=== PATIENT | male | born 1955 | race Caucasian/White ===

== ENCOUNTER 2023-05-03 19:12 | Inpatient (IN) | payer MEDICARE ==
[~2023-05-03] VITALS: Ht 165.1 cm; Wt 93.4 kg
[~2023-05-03 19:12] MED LIST: ALLOPURINOL300 MG PO; ANTIBIOTIC; ASPIRIN325 MG PO; DIURETIC; ECHINACEA HERB380 MG PO; LEVOTHYROXINE50 MCG PO; METFORMIN HCL500 MG PO; TYLENOL PO; VITAMIN D5000 UNIT PO; ZYRTEC10 MG PO
[2023-05-03] MEDS ORDERED: ONDANSETRON HCL INJ 2MG/ML 2ML 2 MG/ML VIAL IV PRN (21:00)
[2023-05-03] MEDS ORDERED: D5.45%NS/KCL 20MEQ 1,000 ML IV SCH (21:00)
[2023-05-03] MEDS ORDERED: Morphine 4mg INJECTION 4 MG/ML INJ IV PRN (21:00)
[2023-05-03 22:05] LABS: BASOPHILS # (AUTO) 0.1 (0.0-0.1); BASOPHILS % 0.7 % (0.0-1.0); EOSINOPHILS # (AUTO) 0.3 (0.0-0.4); EOSINOPHILS % 4.7 % (0.0-6.0); HEMATOCRIT 44.1 % (38.2-49.6); HEMOGLOBIN 14.5 g/dL (14.0-18.0); LYMPHOCYTES # (AUTO) 2.2 (1.0-3.2); LYMPHOCYTES % 32.8 % (18.0-39.1); MEAN CORPUSCULAR HEMOGLOBIN 29.1 pg (28-32); MEAN CORPUSCULAR HGB CONC 32.9 g/dL (31-35); MEAN CORPUSCULAR VOLUME 88.6 fL (81-99); MONOCYTES # (AUTO) 0.7 (0.2-0.8); MONOCYTES % 9.6 % (4.4-11.3); NEUTROPHILS # (AUTO) 3.5 (2.1-6.9); NEUTROPHILS % 51.6 % (38.7-80.0); PLATELET COUNT 206 x10e3/uL (140-360); RED BLOOD COUNT 4.98 x10e6/uL (4.3-5.7); RED CELL DISTRIBUTION WIDTH 14.5 % (11.7-14.4); WHITE BLOOD COUNT 6.77 x10e3/uL (4.8-10.8)
[2023-05-03 22:18] LABS: INR 1.17; PARTIAL THROMBOPLASTIN TIME 38.8 seconds (23.8-35.5); PROTHROMBIN TIME 15.1 seconds (11.9-14.5)
[2023-05-03 22:26] LABS: ALBUMIN 2.8 g/dL (3.5-5.0); ALBUMIN/GLOBULIN RATIO 0.6 (0.8-2.0); ANION GAP 14.2 mmol/L (8-16); BILIRUBIN,TOTAL 0.8 mg/dL (0.2-1.2); CALCIUM 9.4 mg/dL (8.4-10.2); CREATININE, SERUM 0.8 mg/dL (0.72-1.25); POTASSIUM 4.2 mmol/L (3.5-5.1); TOTAL PROTEIN 7.8 g/dL (6.5-8.1)
[2023-05-03] MEDS ORDERED: DEXTROSE 5%/0.9% SOD CHL 1,000 ML IV ONE (23:53)
[2023-05-04] VITALS (9 sets, daily range): BP systolic 101–118; BP diastolic 79–92; PULSE 75–98; RESP 18–21; TEMP 97.4–98.7; O2SAT 96–100
[2023-05-04] MEDS: CEFTRIAXONE 2 GM in SODIUM CHLORIDE 0.9% 100 ML IV SCH (00:03)
[2023-05-04] MEDS: CENTRAL TPN FORMULA 1 BAG IV SCH (00:30)
[2023-05-04] MEDS: DEXTROSE 5%/0.45% SOD CHL 1,000 ML IV SCH (01:23)
[2023-05-04 06:43] LABS: BASOPHILS % 0.7 % (0.0-1.0); EOSINOPHILS # (AUTO) 0.3 (0.0-0.4); EOSINOPHILS % 5.6 % (0.0-6.0); HEMATOCRIT 42.3 % (38.2-49.6); HEMOGLOBIN 13.9 g/dL (14.0-18.0); LYMPHOCYTES # (AUTO) 1.2 (1.0-3.2); LYMPHOCYTES % 22.2 % (18.0-39.1); MEAN CORPUSCULAR HEMOGLOBIN 28.7 pg (28-32); MEAN CORPUSCULAR HGB CONC 32.9 g/dL (31-35); MEAN CORPUSCULAR VOLUME 87.4 fL (81-99); MONOCYTES # (AUTO) 0.5 (0.2-0.8); MONOCYTES % 9.9 % (4.4-11.3); NEUTROPHILS # (AUTO) 3.3 (2.1-6.9); PLATELET COUNT 179 x10e3/uL (140-360); RED BLOOD COUNT 4.84 x10e6/uL (4.3-5.7); RED CELL DISTRIBUTION WIDTH 14.6 % (11.7-14.4); WHITE BLOOD COUNT 5.35 x10e3/uL (4.8-10.8)
[2023-05-04 07:21] LABS: ALBUMIN 2.5 g/dL (3.5-5.0); ALBUMIN/GLOBULIN RATIO 0.5 (0.8-2.0); ANION GAP 11.4 mmol/L (8-16); BILIRUBIN,TOTAL 0.6 mg/dL (0.2-1.2); CALCIUM 9.1 mg/dL (8.4-10.2); CREATININE, SERUM 0.95 mg/dL (0.72-1.25); POTASSIUM 4.4 mmol/L (3.5-5.1); TOTAL PROTEIN 7.2 g/dL (6.5-8.1)
[2023-05-04 11:38] LABS: PHOSPHORUS 4.4 MG/DL (2.3-4.7)
[2023-05-05] VITALS (28 sets, daily range): BP systolic 81–356; BP diastolic 60–351; PULSE 38–117; RESP 0–25; TEMP 97.6–98.7; O2SAT 97–100
[2023-05-05 06:27] LABS: BASOPHILS % 0.5 % (0.0-1.0); EOSINOPHILS # (AUTO) 0.3 (0.0-0.4); EOSINOPHILS % 5.6 % (0.0-6.0); HEMATOCRIT 40.9 % (38.2-49.6); HEMOGLOBIN 13.3 g/dL (14.0-18.0); LYMPHOCYTES % 17.7 % (18.0-39.1); MEAN CORPUSCULAR HEMOGLOBIN 28.5 pg (28-32); MEAN CORPUSCULAR HGB CONC 32.5 g/dL (31-35); MEAN CORPUSCULAR VOLUME 87.8 fL (81-99); MONOCYTES # (AUTO) 0.5 (0.2-0.8); MONOCYTES % 9.2 % (4.4-11.3); NEUTROPHILS # (AUTO) 3.7 (2.1-6.9); NEUTROPHILS % 66.5 % (38.7-80.0); PLATELET COUNT 184 x10e3/uL (140-360); RED BLOOD COUNT 4.66 x10e6/uL (4.3-5.7); RED CELL DISTRIBUTION WIDTH 14.6 % (11.7-14.4); WHITE BLOOD COUNT 5.55 x10e3/uL (4.8-10.8)
[2023-05-05 06:43] LABS: INR 1.21; PARTIAL THROMBOPLASTIN TIME 40.3 seconds (23.8-35.5); PROTHROMBIN TIME 15.6 seconds (11.9-14.5)
[2023-05-05 06:51] LABS: ALBUMIN 2.4 g/dL (3.5-5.0); ALBUMIN/GLOBULIN RATIO 0.6 (0.8-2.0); BILIRUBIN,TOTAL 0.9 mg/dL (0.2-1.2); CALCIUM 8.6 mg/dL (8.4-10.2); CREATININE, SERUM 0.89 mg/dL (0.72-1.25); MAGNESIUM 2.1 MG/DL (1.3-2.1); PHOSPHORUS 3.7 MG/DL (2.3-4.7); TOTAL PROTEIN 6.7 g/dL (6.5-8.1)
[2023-05-05 06:59] LABS: CALCIUM IONIZED 1.2 mmol/L (1.09-1.30)
[2023-05-05] MEDS ORDERED: HEPARIN SOD/SOD CHLORIDE 1,000 ML ONE (10:43)
[2023-05-05] MEDS ORDERED: PHENYLEPHRINE HCL 1% 10 MG/ML VIAL ONE (12:12)
[2023-05-05] MEDS ORDERED: LIDOCAINE HCL 2% LOCAL INJ 5 ML SDV VIAL INJ ONE (12:12)
[2023-05-05] MEDS ORDERED: PROPOFOL IV EMULSION 10 MG/ML 20 ML VIAL ONE (12:12)
[2023-05-05] MEDS ORDERED: ROCURONIUM BROMIDE 10 MG/ML 5ML VIAL IV ONE (12:12)
[2023-05-05] MEDS ORDERED: ACETAMINOPHEN 1000 MG/100 ML IV ONE (12:12)
[2023-05-05] MEDS ORDERED: NOREPINEPHRINE 8 MG/D5W 250 ML ONE (12:12)
[2023-05-05] MEDS ORDERED: DEXAMETHASONE SOD PHOS INJ 4 MG/ML SDV ONE (12:12)
[2023-05-05] MEDS ORDERED: SEVOFLURANE INHAL SOLN 250 ML PEN BTL ONE (12:12)
[2023-05-05] MEDS ORDERED: ONDANSETRON HCL INJ 2MG/ML 2ML 2 MG/ML VIAL ONE (12:12)
[2023-05-05] MEDS ORDERED: FENTANYL CITRATE/PF 100MCG/2 ML INJ ONE ×2 (12:35→12:39)
[2023-05-05] MEDS ORDERED: MIDAZOLAM HCL 2 MG/2 ML VIAL ONE (12:35)
[2023-05-05] MEDS ORDERED: NOREPINEPHRINE 8 MG/D5W 250 ML 250 ML ONE (18:14)
[2023-05-05] MEDS ORDERED: ACETAMINOPHEN 1000 MG/100 ML IV PRN (18:15)
[2023-05-05] MEDS ORDERED: ONDANSETRON HCL INJ 2MG/ML 2ML 2 MG/ML VIAL IV PRN (18:15)
[2023-05-05] MEDS: SODIUM CHLORIDE 0.9% 250ML IRRIG IR SCH (18:15)
[2023-05-05] MEDS: NOREPINEPHRINE 8 MG/D5W 250 ML 250 ML IV SCH (18:25)
[2023-05-05] MEDS: SODIUM CHLORIDE 0.9% 1000ML 1,000 ML IV SCH (18:32)
[2023-05-05] MEDS ORDERED: FENTANYL 2000MCG/NS 250 250 ML IV PRN (19:00)
[2023-05-05] MEDS ORDERED: AMIODARONE HCL 150 MG in DEXTROSE 5% 100ML 100 ML IV SCH (19:00)
[2023-05-05] MEDS ORDERED: AMIODARONE HCL 150 MG/100 ML BAG IV ONE (19:00)
[2023-05-05] MEDS: AMIODARONE 900MG 500 ML IV SCH (19:27)
[2023-05-05] MEDS: PROPOFOL IV EMULSION 10MG/ML 100 ML IV PRN (19:38)
[2023-05-05] MEDS: ROPIVACAINE 246.25 MG, EPINEPHRINE HCL 1:1000 1ML 0.5 MG, CLONIDINE HCL 0.08 MG, KETORO... INJ ONE (19:48)
[2023-05-05] MEDS: SODIUM CHLORIDE 0.9% 250ML 250 ML IV ONE (19:48)
[2023-05-05 19:56] LABS: ABG HCO3 21 mmol/L (22-26); ABG PCO2 43 mmHg (35-45); ABG PH 7.31 (7.35-7.45); ABG PO2 201 mmHg (80-105); ABG TCO2 23
[2023-05-05] MEDS: CENTRAL TPN FORMULA 1 BAG IV SCH (20:00)
[2023-05-05] MEDS: CLINDAMYCIN PHOS 900MG/ 50ML 50 ML IV SCH (23:10)
[2023-05-06] VITALS (54 sets, daily range): BP systolic 87–116; BP diastolic 51–68; PULSE 60–107; RESP 11–28; TEMP 97.8–99.9; O2SAT 94–100
[2023-05-06 06:09] LABS: BASOPHILS % 0.2 % (0.0-1.0); HEMATOCRIT 31.8 % (38.2-49.6); HEMOGLOBIN 10.4 g/dL (14.0-18.0); LYMPHOCYTES % 6.6 % (18.0-39.1); MEAN CORPUSCULAR HEMOGLOBIN 28.7 pg (28-32); MEAN CORPUSCULAR HGB CONC 32.7 g/dL (31-35); MEAN CORPUSCULAR VOLUME 87.6 fL (81-99); MONOCYTES # (AUTO) 1.2 (0.2-0.8); MONOCYTES % 7.9 % (4.4-11.3); NEUTROPHILS # (AUTO) 13.3 (2.1-6.9); NEUTROPHILS % 84.9 % (38.7-80.0); PLATELET COUNT 177 x10e3/uL (140-360); RED BLOOD COUNT 3.63 x10e6/uL (4.3-5.7); RED CELL DISTRIBUTION WIDTH 14.6 % (11.7-14.4); WHITE BLOOD COUNT 15.64 x10e3/uL (4.8-10.8)
[2023-05-06 06:33] LABS: ALBUMIN 1.7 g/dL (3.5-5.0); ALBUMIN/GLOBULIN RATIO 0.5 (0.8-2.0); BILIRUBIN,TOTAL 1.4 mg/dL (0.2-1.2); CALCIUM 7.3 mg/dL (8.4-10.2); CREATININE, SERUM 0.85 mg/dL (0.72-1.25); PHOSPHORUS 3.6 MG/DL (2.3-4.7)
[2023-05-06 07:01] LABS: CALCIUM IONIZED 1.1 mmol/L (1.09-1.30)
[2023-05-06 09:16] LABS: CALCIUM 7.4 mg/dL (8.4-10.2); CREATININE, SERUM 0.87 mg/dL (0.72-1.25)
[2023-05-06 09:29] LABS: ABG HCO3 20 mmol/L (22-26); ABG PCO2 31 mmHg (35-45); ABG PH 7.41 (7.35-7.45); ABG PO2 138 mmHg (80-105); ABG TCO2 21
[2023-05-06] MEDS ORDERED: DEXTROSE 50% SYRINGE 50 ML IV PRN (15:45)
[2023-05-06] MEDS: INSULIN REGULAR, HUMAN 100 UNIT/1 ML SQ SCH (16:21)
[2023-05-06] MEDS: HYDROMORPHONE 1MG/1ML INJ IV PRN (17:53)
[2023-05-06] MEDS: AMIODARONE 900MG 500 ML IV SCH (19:47)
[2023-05-06] MEDS: AMIODARONE 900MG 500 ML IV ONE (19:47)
[2023-05-07] VITALS (52 sets, daily range): BP systolic 90–114; BP diastolic 45–87; PULSE 72–104; RESP 18–28; TEMP 97.4–98.9; O2SAT 95–100
[2023-05-07 06:36] LABS: BASOPHILS % 0.2 % (0.0-1.0); EOSINOPHILS # (AUTO) 0.1 (0.0-0.4); EOSINOPHILS % 0.4 % (0.0-6.0); HEMATOCRIT 26.3 % (38.2-49.6); HEMOGLOBIN 8.8 g/dL (14.0-18.0); LYMPHOCYTES # (AUTO) 1.1 (1.0-3.2); MEAN CORPUSCULAR HEMOGLOBIN 29.2 pg (28-32); MEAN CORPUSCULAR HGB CONC 33.5 g/dL (31-35); MEAN CORPUSCULAR VOLUME 87.4 fL (81-99); MONOCYTES # (AUTO) 1.1 (0.2-0.8); MONOCYTES % 8.5 % (4.4-11.3); NEUTROPHILS # (AUTO) 10.8 (2.1-6.9); NEUTROPHILS % 82.4 % (38.7-80.0); PLATELET COUNT 146 x10e3/uL (140-360); RED BLOOD COUNT 3.01 x10e6/uL (4.3-5.7); RED CELL DISTRIBUTION WIDTH 15.2 % (11.7-14.4); WHITE BLOOD COUNT 13.12 x10e3/uL (4.8-10.8)
[2023-05-07 06:57] LABS: ALBUMIN 1.5 g/dL (3.5-5.0); ALBUMIN/GLOBULIN RATIO 0.5 (0.8-2.0); ANION GAP 7.9 mmol/L (8-16); BILIRUBIN,TOTAL 1.5 mg/dL (0.2-1.2); CALCIUM 7.3 mg/dL (8.4-10.2); CREATININE, SERUM 0.79 mg/dL (0.72-1.25); POTASSIUM 3.9 mmol/L (3.5-5.1); TOTAL PROTEIN 4.7 g/dL (6.5-8.1)
[2023-05-07] MEDS: ACETAMINOPHEN 1000 MG/100 ML IV PRN (14:27)
[2023-05-08] VITALS (28 sets, daily range): BP systolic 88–137; BP diastolic 58–124; PULSE 53–105; RESP 17–43; TEMP 97.8–98.1; O2SAT 90–100
[2023-05-08 06:34] LABS: BASOPHILS # (AUTO) 0.1 (0.0-0.1); BASOPHILS % 0.4 % (0.0-1.0); EOSINOPHILS # (AUTO) 0.4 (0.0-0.4); HEMATOCRIT 26.2 % (38.2-49.6); HEMOGLOBIN 8.4 g/dL (14.0-18.0); LYMPHOCYTES # (AUTO) 1.2 (1.0-3.2); LYMPHOCYTES % 9.5 % (18.0-39.1); MEAN CORPUSCULAR HEMOGLOBIN 29.5 pg (28-32); MEAN CORPUSCULAR HGB CONC 32.1 g/dL (31-35); MEAN CORPUSCULAR VOLUME 91.9 fL (81-99); MONOCYTES % 7.4 % (4.4-11.3); NEUTROPHILS # (AUTO) 10.1 (2.1-6.9); NEUTROPHILS % 78.8 % (38.7-80.0); PLATELET COUNT 145 x10e3/uL (140-360); RED BLOOD COUNT 2.85 x10e6/uL (4.3-5.7); RED CELL DISTRIBUTION WIDTH 15.3 % (11.7-14.4); WHITE BLOOD COUNT 12.76 x10e3/uL (4.8-10.8)
[2023-05-08 07:00] LABS: ANION GAP 8.4 mmol/L (8-16); CALCIUM 7.7 mg/dL (8.4-10.2); CREATININE, SERUM 0.71 mg/dL (0.72-1.25); PHOSPHORUS 2.3 MG/DL (2.3-4.7)
[2023-05-08 07:01] LABS: POTASSIUM 3.4 mmol/L (3.5-5.1)
[2023-05-08 07:10] LABS: FERRITIN 165.87 ng/mL (21.81-274.66)
[2023-05-08] MEDS: POTASSIUM CHLORIDE 20MEQ/100ML 100 ML IV SCH (11:56)
[2023-05-08] MEDS: CENTRAL TPN FORMULA 1 BAG IV SCH (19:27)
[2023-05-08] MEDS: BISACODYL 10 MG SUPP PR SCH (20:19)
[2023-05-09] VITALS (20 sets, daily range): BP systolic 55–120; BP diastolic 36–92; PULSE 77–103; RESP 19–27; TEMP 98.1–98.8; O2SAT 94–100
[2023-05-09 06:37] LABS: BASOPHILS % 0.3 % (0.0-1.0); EOSINOPHILS # (AUTO) 0.4 (0.0-0.4); EOSINOPHILS % 3.7 % (0.0-6.0); HEMATOCRIT 25.3 % (38.2-49.6); LYMPHOCYTES # (AUTO) 1.2 (1.0-3.2); LYMPHOCYTES % 10.8 % (18.0-39.1); MEAN CORPUSCULAR HEMOGLOBIN 28.9 pg (28-32); MEAN CORPUSCULAR HGB CONC 31.6 g/dL (31-35); MEAN CORPUSCULAR VOLUME 91.3 fL (81-99); MONOCYTES # (AUTO) 0.9 (0.2-0.8); MONOCYTES % 7.9 % (4.4-11.3); NEUTROPHILS # (AUTO) 8.6 (2.1-6.9); NEUTROPHILS % 76.3 % (38.7-80.0); PLATELET COUNT 168 x10e3/uL (140-360); RED BLOOD COUNT 2.77 x10e6/uL (4.3-5.7); RED CELL DISTRIBUTION WIDTH 15.3 % (11.7-14.4)
[2023-05-09 06:54] LABS: ANION GAP 9.2 mmol/L (8-16); CALCIUM 7.6 mg/dL (8.4-10.2); CREATININE, SERUM 0.68 mg/dL (0.72-1.25)
[2023-05-09 06:56] LABS: POTASSIUM 3.2 mmol/L (3.5-5.1)
[2023-05-09] MEDS: AMIODARONE HCL 200 MG TAB PO ONE (12:03)
[2023-05-09] MEDS: POTASSIUM CHLORIDE 20MEQ/100ML 100 ML IV SCH (12:04)
[2023-05-10] VITALS (13 sets, daily range): BP systolic 80–126; BP diastolic 51–81; PULSE 66–105; RESP 15–28; TEMP 97.6–98.8; O2SAT 84–100
[2023-05-10 06:44] LABS: BASOPHILS # (AUTO) 0.1 (0.0-0.1); BASOPHILS % 0.4 % (0.0-1.0); EOSINOPHILS # (AUTO) 0.5 (0.0-0.4); HEMATOCRIT 28.7 % (38.2-49.6); LYMPHOCYTES # (AUTO) 1.5 (1.0-3.2); LYMPHOCYTES % 12.5 % (18.0-39.1); MEAN CORPUSCULAR HEMOGLOBIN 28.7 pg (28-32); MEAN CORPUSCULAR HGB CONC 31.4 g/dL (31-35); MEAN CORPUSCULAR VOLUME 91.4 fL (81-99); MONOCYTES # (AUTO) 0.9 (0.2-0.8); NEUTROPHILS # (AUTO) 8.6 (2.1-6.9); NEUTROPHILS % 73.8 % (38.7-80.0); PLATELET COUNT 205 x10e3/uL (140-360); RED BLOOD COUNT 3.14 x10e6/uL (4.3-5.7); RED CELL DISTRIBUTION WIDTH 15.6 % (11.7-14.4); WHITE BLOOD COUNT 11.61 x10e3/uL (4.8-10.8)
[2023-05-10 06:47] LABS: CALCIUM IONIZED 1.1 mmol/L (1.09-1.30)
[2023-05-10 06:48] LABS: ALBUMIN 1.7 g/dL (3.5-5.0); ALBUMIN/GLOBULIN RATIO 0.4 (0.8-2.0); ANION GAP 9.4 mmol/L (8-16); BILIRUBIN,DIRECT 0.5 mg/dL (0.0-0.5); CALCIUM 8.3 mg/dL (8.4-10.2); CREATININE, SERUM 0.67 mg/dL (0.72-1.25); PHOSPHORUS 2.9 MG/DL (2.3-4.7); TOTAL PROTEIN 5.8 g/dL (6.5-8.1)
[2023-05-10 06:50] LABS: POTASSIUM 3.4 mmol/L (3.5-5.1)
[2023-05-10] MEDS: AMIODARONE HCL 200 MG TAB PO SCH (09:48)
[2023-05-10] MEDS: BISACODYL 10 MG SUPP PR SCH (21:54)
[2023-05-11] VITALS (11 sets, daily range): BP systolic 112–135; BP diastolic 63–84; PULSE 82–104; RESP 19–28; TEMP 97.8–98.4; O2SAT 95–98
[2023-05-11 07:06] LABS: BASOPHILS % 0.1 % (0.0-1.0); EOSINOPHILS # (AUTO) 0.4 (0.0-0.4); EOSINOPHILS % 4.1 % (0.0-6.0); HEMATOCRIT 25.9 % (38.2-49.6); HEMOGLOBIN 8.3 g/dL (14.0-18.0); LYMPHOCYTES # (AUTO) 1.2 (1.0-3.2); LYMPHOCYTES % 11.2 % (18.0-39.1); MEAN CORPUSCULAR HEMOGLOBIN 28.5 pg (28-32); MONOCYTES # (AUTO) 0.9 (0.2-0.8); MONOCYTES % 8.5 % (4.4-11.3); NEUTROPHILS # (AUTO) 7.6 (2.1-6.9); NEUTROPHILS % 74.6 % (38.7-80.0); PLATELET COUNT 218 x10e3/uL (140-360); RED BLOOD COUNT 2.91 x10e6/uL (4.3-5.7); RED CELL DISTRIBUTION WIDTH 15.8 % (11.7-14.4); WHITE BLOOD COUNT 10.24 x10e3/uL (4.8-10.8)
[2023-05-11 07:31] LABS: ALBUMIN 1.6 g/dL (3.5-5.0); ALBUMIN/GLOBULIN RATIO 0.4 (0.8-2.0); ANION GAP 9.4 mmol/L (8-16); BILIRUBIN,TOTAL 0.9 mg/dL (0.2-1.2); CREATININE, SERUM 0.65 mg/dL (0.72-1.25); POTASSIUM 3.4 mmol/L (3.5-5.1); TOTAL PROTEIN 5.6 g/dL (6.5-8.1)
[2023-05-11] MEDS: CEFTRIAXONE 2 GM in SODIUM CHLORIDE 0.9% 100 ML IV SCH (18:55)
[2023-05-11] MEDS: FUROSEMIDE 40 MG TAB PO SCH (18:55)
[2023-05-11] MEDS: BISACODYL 10 MG SUPP PR SCH (20:19)
[2023-05-12] VITALS (10 sets, daily range): BP systolic 107–119; BP diastolic 68–82; PULSE 77–123; RESP 20–26; TEMP 97.3–98.8; O2SAT 88–98
[2023-05-12] MEDS: APIXABAN 5 MG TABLET PO SCH (08:13)
[2023-05-12] MEDS ORDERED: HYDROCODONE/APAP 7.5MG-325MG 1 EA TAB PO PRN (19:45)
[2023-05-12] MEDS ORDERED: CENTRAL TPN FORMULA 1 BAG IV SCH (20:00)
[2023-05-13] VITALS (8 sets, daily range): BP systolic 106–127; BP diastolic 68–79; PULSE 89–97; RESP 20–23; TEMP 98–99.5; O2SAT 95–97
[2023-05-13 06:43] LABS: BASOPHILS % 0.4 % (0.0-1.0); EOSINOPHILS # (AUTO) 0.4 (0.0-0.4); EOSINOPHILS % 5.5 % (0.0-6.0); HEMATOCRIT 28.4 % (38.2-49.6); HEMOGLOBIN 8.8 g/dL (14.0-18.0); LYMPHOCYTES # (AUTO) 1.1 (1.0-3.2); LYMPHOCYTES % 14.5 % (18.0-39.1); MEAN CORPUSCULAR HEMOGLOBIN 28.6 pg (28-32); MEAN CORPUSCULAR VOLUME 92.2 fL (81-99); MONOCYTES # (AUTO) 0.5 (0.2-0.8); MONOCYTES % 6.8 % (4.4-11.3); NEUTROPHILS # (AUTO) 5.6 (2.1-6.9); NEUTROPHILS % 71.9 % (38.7-80.0); PLATELET COUNT 230 x10e3/uL (140-360); RED BLOOD COUNT 3.08 x10e6/uL (4.3-5.7); RED CELL DISTRIBUTION WIDTH 15.9 % (11.7-14.4); WHITE BLOOD COUNT 7.84 x10e3/uL (4.8-10.8)
[2023-05-13 07:03] LABS: ANION GAP 12.7 mmol/L (8-16); CALCIUM 8.2 mg/dL (8.4-10.2); CREATININE, SERUM 0.73 mg/dL (0.72-1.25); POTASSIUM 3.7 mmol/L (3.5-5.1)
[2023-05-13 09:39] LABS: EOSINOPHILS % (MANUAL) 3 % (0-7); LYMPHOCYTES % (MANUAL) 8 % (19-48); MONOCYTES % (MANUAL) 4 % (3.4-9.0); NEUTROPHILS % (MANUAL) 85 % (40-74); PLATELET ESTIMATE ADEQUATE; PLATELET MORPHOLOGY COMMENT NORMAL; RBC MORPHOLOGY COMMENT NORMAL
[2023-05-13] MEDS: HYDROCODONE/APAP 7.5MG-325MG 1 EA TAB PO PRN (21:54)
[2023-05-14 00:18] VITALS: BP 106/73; PULSE 80; RESP 24; TEMP 99.7; O2SAT 96
[2023-05-14 03:59] VITALS: BP 112/82; PULSE 96; RESP 17; TEMP 97.2; O2SAT 96
[2023-05-14 05:58] LABS: EOSINOPHILS # (AUTO) 0.4 (0.0-0.4); EOSINOPHILS % 4.8 % (0.0-6.0); HEMATOCRIT 27.3 % (38.2-49.6); HEMOGLOBIN 8.7 g/dL (14.0-18.0); LYMPHOCYTES # (AUTO) 1.3 (1.0-3.2); MEAN CORPUSCULAR HEMOGLOBIN 28.8 pg (28-32); MEAN CORPUSCULAR HGB CONC 31.9 g/dL (31-35); MEAN CORPUSCULAR VOLUME 90.4 fL (81-99); MONOCYTES # (AUTO) 0.5 (0.2-0.8); MONOCYTES % 7.3 % (4.4-11.3); NEUTROPHILS # (AUTO) 5.1 (2.1-6.9); NEUTROPHILS % 69.8 % (38.7-80.0); PLATELET COUNT 257 x10e3/uL (140-360); RED BLOOD COUNT 3.02 x10e6/uL (4.3-5.7); RED CELL DISTRIBUTION WIDTH 15.9 % (11.7-14.4); WHITE BLOOD COUNT 7.36 x10e3/uL (4.8-10.8)
[2023-05-14 06:18] LABS: ANION GAP 12.8 mmol/L (8-16); CALCIUM 8.3 mg/dL (8.4-10.2); CREATININE, SERUM 0.75 mg/dL (0.72-1.25); POTASSIUM 3.8 mmol/L (3.5-5.1)
[2023-05-14 07:25] VITALS: BP 107/74; PULSE 87; RESP 16; TEMP 97.9; O2SAT 94
[2023-05-14] MEDS ORDERED: TYLENOL325 MG PO (09:04)
[2023-05-14] MEDS ORDERED: FUROSEMIDE40 MG PO (09:04)
[2023-05-14] MEDS ORDERED: ELIQUIS5 MG PO (09:04)
[2023-05-14] MEDS ORDERED: PANTOPRAZOLE SO40 MG PO (09:04)
[2023-05-14] MEDS ORDERED: AMIODARONE HCL200 MG PO (09:04)
[2023-05-14] MEDS ORDERED: CEPHALEXIN500 MG PO (09:04)
[2023-05-14 09:30] VITALS: BP 107/74; PULSE 87; RESP 16; TEMP 97.9; O2SAT 94
[2023-05-14 12:11] VITALS: BP 117/83; PULSE 86; RESP 25; O2SAT 99
[2023-05-14 17:08] VITALS: BP 114/78; PULSE 86; RESP 20; TEMP 97.7; O2SAT 98
== END 2023-05-14 19:30 | DRG 329 ==
LOC: ER 20:37 → ERHOLD 21:02 → MED/SURG3 23:59 → ICU 05-05 17:46
PROVIDERS: ADMIT Internal Medicine; ATTEND Internal Medicine
PROC: 02HV33Z Insertion of Infusion Device into Superior Vena Cava, Percutaneous Approach (ICD-10-PCS; 2023-05-05)
PROC: B548ZZA Ultrasonography of Superior Vena Cava, Guidance (ICD-10-PCS; 2023-05-05)
PROC: 3E033XZ Introduction of Vasopressor into Peripheral Vein, Percutaneous Approach (ICD-10-PCS; 2023-05-05)
PROC: 0WQF0ZZ Repair Abdominal Wall, Open Approach (ICD-10-PCS; 2023-05-05)
PROC: 4A033R1 Measurement of Arterial Saturation, Peripheral, Percutaneous Approach (ICD-10-PCS; 2023-05-05)
PROC: 0DB80ZZ Excision of Small Intestine, Open Approach (ICD-10-PCS; 2023-05-05)
PROC: 0WPF0JZ Removal of Synthetic Substitute from Abdominal Wall, Open Approach (ICD-10-PCS; 2023-05-05)
PROC: 0DTF0ZZ Resection of Right Large Intestine, Open Approach (ICD-10-PCS; principal; 2023-05-05 11:53)
PROC: 4A033R1 Measurement of Arterial Saturation, Peripheral, Percutaneous Approach (ICD-10-PCS; 2023-05-06)
DX: K63.2 Fistula of intestine (principal); R53.2 Functional quadriplegia; E44.0 Moderate protein-calorie malnutrition; L02.211 Cutaneous abscess of abdominal wall; K43.0 Incisional hernia with obstruction, without gangrene; I82.612 Acute embolism and thrombosis of superficial veins of left upper extremity; L03.114 Cellulitis of left upper limb; T83.718A Erosion of other implanted mesh to organ or tissue, initial encounter; I95.81 Postprocedural hypotension; I48.0 Paroxysmal atrial fibrillation; E11.65 Type 2 diabetes mellitus with hyperglycemia; Z79.84 Long term (current) use of oral hypoglycemic drugs; E03.9 Hypothyroidism, unspecified; E66.01 Morbid (severe) obesity due to excess calories; Z68.34 Body mass index [BMI] 34.0-34.9, adult; Z71.3 Dietary counseling and surveillance; M19.91 Primary osteoarthritis, unspecified site; R53.81 Other malaise; D63.8 Anemia in other chronic diseases classified elsewhere; Z93.3 Colostomy status; Z79.899 Other long term (current) drug therapy; Z11.52 Encounter for screening for COVID-19; Z79.01 Long term (current) use of anticoagulants; Z79.82 Long term (current) use of aspirin; Y83.8 Other surgical procedures as the cause of abnormal reaction of the patient, or of later complication, without mention of misadventure at the time of the procedure
CPT/HCPCS: 36415; 36569; 36600; 71045; 80048; 80053; 80076; 82607; 82728; 82805; 82948; 83036; 83540; 83735; 84100; 84443; 84466; 84478; 84630; 85025; 85610; 85730; 86850; 86900; 86920; 88304; 88305; 88307; 93005; 93971; 94002; 94003; 94799; 96361; 96366; 96372; 99252; 99284; J0171; J0696; J1100; J1170; J1885; J2001; J2250; J2371; J2405; J2543; J2795; J3480; J7030; J7042; J7050; U0002